=== PATIENT | female | born 1955 | race Caucasian/White ===

== ENCOUNTER 2016-05-28 12:06 | Outpatient (CLI) | payer SELFPAY | END 2016-05-28 12:07 | disposition home or self-care (01) | DX: I10 Essential (primary) hypertension (principal) ==

== ENCOUNTER 2016-06-11 08:43 | Outpatient (CLI) | payer SELFPAY | END 2016-06-11 08:44 | disposition home or self-care (01) | DX: I10 Essential (primary) hypertension (principal) ==

== ENCOUNTER 2019-01-01 15:28 | Outpatient (CLI) | payer MEDICARE, OTHER | END 2019-01-01 15:29 | disposition home or self-care (01) | LOC: LAB 15:28 | PROVIDERS: ATTEND Internal Medicine Nephrology | DX: I50.32 Chronic diastolic (congestive) heart failure (principal) | CPT/HCPCS: 83880 ==

== ENCOUNTER 2021-09-11 18:42 | Outpatient (CLI) | payer MEDICARE | END 2021-09-11 18:43 | disposition short-term general hospital (02) | LOC: EMS 18:42 | DX: R06.00 Dyspnea, unspecified (principal); R20.8 Other disturbances of skin sensation; S90.822A Blister (nonthermal), left foot, initial encounter; S90.821A Blister (nonthermal), right foot, initial encounter; X58.XXXA Exposure to other specified factors, initial encounter | CPT/HCPCS: A0425; A0429; A0888 ==

== ENCOUNTER → 2022-03-19 | Outpatient (CLI) | payer MEDICARE | END | disposition short-term general hospital (02) | LOC: EMS 12:43 | DX: R10.2 Pelvic and perineal pain (principal); R10.30 Lower abdominal pain, unspecified; R30.0 Dysuria | CPT/HCPCS: A0425; A0429; A0888 ==

== ENCOUNTER 2022-03-24 17:23 | Emergency (ER) | payer MEDICARE ==
[2022-03-24] MEDS ORDERED: LACTULOSE 10 GM /15 ML UDC PO STA (17:52)
--- NOTE | 2022-03-24 19:01 | ED Physician Documentation ---
History of Present Illness - Stated complaint Stated Complaint: CONSTIPATION - Chief complaint Chief Complaint: Abd Pain - History obtained from History obtained from: Patient - Additonal information Additional information: This is a 66-year-old female who presented due to concerns for constipation. The patient was recently placed on oxycodone for a foot ulcer as well is for dysuria from UTI. She is also on Doxy cyclin and cefuroxime for these things. She states for the last 4 days she has not able to have a regular bowel movement. She had a small "bullet" of stool today and is passing gas but Still feels constipated. She took Senokot at home without relief. She has not had any other abdominal pain, no nausea, vomiting, no diarrhea. She does continue to leak urine a little but has no dysuria, urgency, frequency. She has not had fever or chills. The patient states that she had thought that she was at [facility] where she receives most of her care and Would prefer to go over there. Review of Systems Constitutional: reports: Reviewed and negative Cardiac: reports: Reviewed and negative Respiratory: reports: Reviewed and negative GI: reports: Constipation : reports: Incontinent Musculoskeletal: reports: Reviewed and negative PD PAST MEDICAL HISTORY - Past Medical History Past Medical History: Yes Cardiovascular: Hypertension Neuro: None Endocrine/Autoimmune: Type 2 diabetes - Present Medications Home Medications: Ambulatory Orders Medication Instructions Recorded Confirmed Cefuroxime Axetil [Cefuroxime] 500 mg PO BID 03/24/22 03/24/22 Cholecalciferol (Vitamin D3) 125 mcg PO DAILY 03/24/22 03/24/22 [Vitamin D3] Doxycycline Hyclate 100 mg PO BID 03/24/22 03/24/22 Furosemide [Lasix] 40 mg PO DAILY 03/24/22 03/24/22 Glipizide [Glipizide Xl] 10 mg PO DAILY 03/24/22 03/24/22 Lisinopril [Zestril] 20 mg PO DAILY 03/24/22 03/24/22 Magnesium Oxide [Magnesium] 400 mg PO DAILY 03/24/22 03/24/22 Mecobalamin [B12 Active] 2,500 mcg PO DAILY 03/24/22 03/24/22 [place]-3S/Dha/Epa/Fish Oil/D3 1 each PO DAILY 03/24/22 03/24/22 [[place]-3 + D Softgel] Timolol Maleate [Timoptic] 1 drops OP DAILY 03/24/22 03/24/22 metFORMIN [Glucophage] 500 mg PO BIDWM 03/24/22 03/24/22 metOLazone [Metolazone] 2.5 mg PO DAILY 03/24/22 03/24/22 oxyCODONE/ACET 5/325 [Percocet 5 1 each PO TID PRN 03/24/22 03/24/22 mg/325 mg] polyethylene glycoL 3350 [Miralax] 17 gm PO DAILY PRN #1 each 03/24/22 - Allergies Allergies/Adverse Reactions: Allergies Allergy/AdvReac Type Severity Reaction Status Date / Time NSAIDS (Non-Steroidal AdvReac Unknown Verified 03/24/22 18:19 Anti-Inflamma - Social History Does the pt smoke?: No Smoking Status: Never smoker Does the pt drink ETOH?: No Does the pt have substance abuse?: No - Immunizations Immunizations are current?: Yes PD ED PE NORMAL - Vitals Vital signs reviewed: Yes - General General: Alert and oriented X 3, No acute distress, Well developed/nourished, Other (Talking on her cellphone for most of her entire ER stay) - HEENT HEENT: Atraumatic, Moist mucous membranes - Cardiac Cardiac: RRR, No murmur - Respiratory Respiratory: No respiratory distress, Clear bilaterally - Abdomen Abdomen: Normal bowel sounds, Non tender, Non distended, Other (morbidly obese) - Neuro Neuro: Alert and oriented X 3 Eye Opening: Spontaneous Motor: Obeys Commands Verbal: Oriented GCS Score: 15 - Psych Psych: Normal mood, Normal affect Results - Vitals Vitals: Vital Signs - 24 hr 03/24/22 03/24/22 17:37 18:06 Temperature 36.4 C L Heart Rate 94 79 Respiratory 16 18 Rate Blood Pressure 132/91 H 142/78 H O2 Saturation 100 98 Oxygen O2 Source Room air PD MEDICAL DECISION MAKING - ED course Complexity details: d/w patient ED course: This is a 66-year-old female who presented due to concerns for constipation. She is on oxycodone and this is likely contributing. She has active bowel tones with a soft abdomen and I have no concern for obstruction at this time. I recommended increasing her bowel regimen with the addition of MiraLAX. We gave her a dose of lactulose here. Patient is safe for discharge home with instructions for new bowel regimen. She does have a number of other concerns that are nonacute today and I have advised her to follow-up with her primary care provider for including follow-up on her urinary tract infection, and foot ulcer. She is currently on antibiotics for these with clinical improvement and lab work not indicated at this time. The patient is discharged in stable condition from her ER to the care of her daughter. Departure - Departure Disposition: Home, Self Care Clinical Impression: Constipation Qualifiers: Constipation type: drug induced constipation Qualified Code(s): K59.03 - Drug induced constipation Condition: Good Instructions: ED Constipation Prescriptions: polyethylene glycoL 3350 [Miralax] 17 gm PO DAILY PRN #1 each PRN Reason: Constipation Comments: You presented with constipation which is likely due to your recent narcotic use. We have given you a prescription for medication to help with constipation. He should also try to stay active, drink plenty of water and eat a well-rounded diet. Please follow-up with your primary doctor if no improvement in the next several days.
[2022-03-24 19:11] VITALS: BP 126/73
== END 2022-03-24 19:16 | disposition home or self-care (01) ==
LOC: EDUNIT# → ED 17:23
DX: K59.03 Drug induced constipation (principal); T50.905A Adverse effect of unspecified drugs, medicaments and biological substances, initial encounter
CPT/HCPCS: 99283; 99284

== ENCOUNTER → 2022-03-24 | Outpatient (CLI) | payer MEDICARE | END | disposition critical access hospital (66) | LOC: EMS 16:57 | DX: M54.9 Dorsalgia, unspecified (principal); K59.00 Constipation, unspecified | CPT/HCPCS: A0425; A0429 ==

== ENCOUNTER 2022-04-29 13:16 | Outpatient (CLI) | payer MEDICARE ==
[2022-04-29 19:26] VITALS: BP 126/74
--- NOTE | 2022-04-29 19:26 | SLEEP CARE CONSULTATION ---
Information from patient questionnaire entered by Yeny Norton. I have reviewed and concur with the information entered by Yeny Norton. This document represents the service I personally performed and the decisions made by me, Marisabel Patel MD, [facility]. History of Present Illness Service Date and Time: 04/29/2022 1316 Reason for Visit: New patient Chief Complaint: reports: Insomnia, Unrefreshed sleep, Snoring, Excessive daytime sleepiness, Observed pauses in breathing, Fatigue, Frequent awakenings at night Usual bedtime: 1-230AM AND 530-645AM Time it takes to fall asleep: A FEW MIN Snores at night: Yes Number of times waking at night: A DOZEN Reasons for waking at night: reports: Pain, Bathroom, Other (NOISE UNKNOWN REASONS QUICK COUGH) Toss, Turn, or Twitch while sleeping: No Recalls having dreams: No Usually gets out of bed at: 5 Feels refreshed in the morning: No Morning headache: Yes (RESOLVES ABOUT 2 HRS AFTER BEING UP) Sleepy or fatigued during the day: Yes Ever fallen asleep while driving: No Takes day naps: Yes Dreams during day naps: No Prior sleep studies: Yes (HERE ) Additional HPI information: I have the pleasure of seeing Ms. Elliott today regarding obstructive sleep apnea. As you know, she is a 66-year-old lady who was diagnosed here in 2011 with moderate obstructive sleep apnea-hypopnea (AHI was 29.4 and morales oxygen saturation, 47%). Mrs. Elliott was diagnosed to have moderate obstructive sleep apnea-hypopnea syndrome and prescribed with a CPAP device. She returned today for follow up of CPAP therapy. The patient purchased the device from [employer] and was fitted with a full face mask. She uses the device nightly and all through the night. She complains of no particular problem such as dry throat, facial soreness, aerophagia, sinus pain, or nasal congestion. She thinks that the current pressure of 16 cmH2O seems alright. Since she started using the CPAP device she noticed improvement in her sleep quality, and that she wakes up feeling fresher in the morning and more awake/alert during the day. No snore heard through the CPAP. The patient used her CPAP for about 5 years before she lost it during a move. She now sleeps with head elevated. Her weight went up to 495 lbs but is coming back down. She quit driving 5 years ago. She continues to snore. - Parasomnia Symptoms Ever been unable to move upon waking from sleep: Yes Walks in sleep: No Talks in sleep: No Ever acted out dreams in sleep: No Ever felt weak in the knees when startled or emotional: No Bothered by creepy, crawly, restless sensations in legs: No Problems with memory or concentration: No Subjective Initial [place] Sleepiness Scale score: 8 (02/17/22) Past Medical History Past Medical History: reports: Hypertension, Diabetes, Arthritis, Gout, Fibromyalgia, Anxiety Social History The patient's occupation is a [employer]. Patient is and lives in . Have you smoked in the past 12 months: No Alcohol use: No Caffeine use: Yes Caffeine amount and frequency: 1CUP COFFEE EVERY OTHER DAY Family History Family history of sleep disordered breathing: Yes Family Hx Sleep Apnea: Mother: Snoring, Sleep apnea - Untreated, Father: Snoring, Sleep apnea - Untreated, Sibling: Snoring, Sleep apnea - Untreated Allergies and Home Medications Drug allergies reviewed: Yes Home medication list reviewed: Yes Allergy and home medication list: Allergies NSAIDS (Non-Steroidal Anti-Inflamma Adverse Reaction (Verified 03/24/22 18:19) Unknown bleeding issues Review of Systems Cardiovascular: reports: high blood pressure, leg or foot swelling, have to sleep sitting up Respiratory: reports: shortness of breath Gastrointestinal: reports: heartburn, diarrhea Urinary: reports: incontinence, frequency, urgency Neurological: denies: headaches, seizure, head trauma, disorientation, speech dysfunction, gait or balance problems, fainting or unconsciousness, other Psychiatric: reports: anxiety, depression Ear/Nose/Throat: reports: tonsillectomy, wisdom teeth removed Endocrine: reports: sluggishness, increased appetite Musculoskeletal: reports: joint pain, neck pain, back pain, joint swelling, muscle pain or cramping, mobility problems Immunologic: reports: sneezing Physical Exam Vital signs obtained and entered by: YENY Presley MA Blood Pressure: 126/74 (LEFT ARM) Cuff size: regular Heart Rate: 83 O2 Saturation: 95 Height: 5 ft 5 in Weight: 358 lb Body Mass Index: 59.5 BMI Classification: Morbidly Obese Neck circumference: 22 Mood/affect: normal HEENT: No craniofacial malformation Nostrils: patent to airflow Turbinates: normal Septum: midline Mouth and throat: narrow oropharynx Soft palate: long Hard palate: normal Uvula: normal Uvula visualization: 50% Mallampati Class II Tongue: normal in size Tonsils: absent bilaterally Chin and jaw: normal size and position Neck: normal w/o lymphadenopathy or thyromegaly Heart: regular rate and rhythm Lungs: clear bilaterally Extremities: 2+ edema Neurologic: intact Impression and Plan IMPRESSION: 1. Obstructive Sleep Apnea-Hypopnea Syndrome, moderate, as previously diagnosed. The patient would like to return to use a CPAP again. Because she has not used on for 5 years, a new sleep study is required to accompany the prescription. Plan: 1. Schedule an in-laboratory polysomnography. 2. Try to lose weight. 3. Avoid alcohol, sedative and muscle relaxant around bedtime. 4. Return for follow up after the sleep study. Visit Type: In Office Time Spent with Patient (minutes): 15 Provider Statement: I spent 100% of the Face to Face Visit with the patient with greater than 50% spent counseling the patient and coordination of care.
== END 2022-04-29 13:17 | disposition home or self-care (01) ==
LOC: SC 13:16
PROVIDERS: ATTEND Internal Medicine Pulmonary Disease
DX: G47.33 Obstructive sleep apnea (adult) (pediatric) (principal); E66.01 Morbid (severe) obesity due to excess calories; Z68.43 Body mass index [BMI] 50.0-59.9, adult
CPT/HCPCS: 99202; G0463; 99212

== ENCOUNTER 2022-05-20 19:08 | Outpatient (CLI) | payer MEDICARE | END 2022-05-20 19:09 | disposition home or self-care (01) | LOC: SC 19:08 | PROVIDERS: ATTEND Internal Medicine Pulmonary Disease | DX: G47.33 Obstructive sleep apnea (adult) (pediatric) (principal); G47.36 Sleep related hypoventilation in conditions classified elsewhere; R09.02 Hypoxemia; Z68.43 Body mass index [BMI] 50.0-59.9, adult | CPT/HCPCS: 95810 ==

== ENCOUNTER 2022-07-01 10:58 | Outpatient (CLI) | payer MEDICARE ==
[2022-07-01 16:45] VITALS: BP 128/78
--- NOTE | 2022-07-01 16:45 | SLEEP CARE CONSULTATION ---
Information from patient questionnaire entered by Yeny Norton. I have reviewed and concur with the information entered by Yeny Norton. This document represents the service I personally performed and the decisions made by me, Marisabel Patel MD, [facility]. History of Present Illness Service Date and Time: 07/01/2022 1058 Initial [place] Sleepiness Scale score: 8 (02/17/22) Current [place] Sleepiness Scale score: 10 (07/01/22) Additional HPI information: Ms. Elliott returned for follow up of the sleep study she had on 05/20/22. The polysomnography showed that the patient had reduced sleep efficiency due to sleep onset insomnia and prolonged awakenings during the night. The sleep architecture was abnormal for sleep fragmentation and lack of slow wave sleep (N3). Respiratory monitoring showed mild obstructive sleep apnea-hypopnea (AHI = 9.4) associated with frequent arousals, oxyhemoglobin desaturation and moderate hypoxia (morales oxygen saturation of 72%). The respiratory events occurred almost exclusively during REM sleep (supine AHI = 9.4; non-supine = 0.00). No audible snore. There was no significant periodic leg movement of sleep. Cardiac rhythm was sinus rhythm with frequent premature atrial contractions. No abnormal behavior (parasomnia) observed during the night. The patient was informed of these findings. I explained to her that the study mainly showed hypoxia during REM sleep which is most consistent with obesity hypoventilation rather than obstructive sleep apnea-hypopnea. The fact that she did not snore much during the study also suggested that there was no significant upper airway obstruction. Sleep Study - Results Type of Sleep Study: Polysomnography (COMPLETED 05/20/22) Prior sleep studies: Yes (HERE ) Allergies and Home Medications Drug allergies reviewed: Yes Home medication list reviewed: Yes Allergy and home medication list: Allergies NSAIDS (Non-Steroidal Anti-Inflamma Adverse Reaction (Verified 04/29/22 13:46) Unknown bleeding issues Review of Systems Review of systems same as previous: Yes Physical Exam Vital signs obtained and entered by: YENY Presley MA Blood Pressure: 128/78 (LEFT ARM) Cuff size: regular Heart Rate: 78 O2 Saturation: 97 Height: 5 ft 5 in Weight: 354 lb 6.4 oz Body Mass Index: 58.9 BMI Classification: Morbidly Obese Impression and Plan IMPRESSION: 1. Nocturnal hypoxemia, moderate during REM sleep, most likely due to obesity hypoventilation. Because she spends 37 minutes with oxygen saturation at 88% or lower, she qualifies for home oxygen therapy at night. PLAN: 1. Prescription made for home O2 at night at 2 L/minute through [facility]. 2. Attempt to lose weight. 3. Return for a follow up annually. Prescriptions: Other (Home Oxygen Therapy at night) Follow up with Sleep Care in: 1 year Follow up recommended for: Weight management, Hypoxia Visit Type: In Office Time Spent with Patient (minutes): 15 Provider Statement: I spent 100% of the Face to Face Visit with the patient with greater than 50% spent counseling the patient and coordination of care.
== END 2022-07-01 10:59 | disposition home or self-care (01) ==
LOC: SC 10:58
PROVIDERS: ATTEND Internal Medicine Pulmonary Disease
DX: R09.02 Hypoxemia (principal); E66.01 Morbid (severe) obesity due to excess calories; Z68.43 Body mass index [BMI] 50.0-59.9, adult
CPT/HCPCS: 99212; G0463

== ENCOUNTER 2023-07-29 17:02 | Outpatient (CLI) | payer MEDICARE | END 2023-07-29 23:59 | disposition short-term general hospital (02) | LOC: EMS 17:02 | DX: M25.562 Pain in left knee (principal); W18.39XA Other fall on same level, initial encounter; Y92.038 Other place in apartment as the place of occurrence of the external cause | CPT/HCPCS: A0425; A0429; A0888 ==